=== PATIENT | female | born 1940 | race Caucasian/White ===

== ENCOUNTER → 2018-05-03 | Outpatient (CLI) | payer MEDICARE ==
[~2018-05-03] MED LIST: ALIGN4 MG PO; BENTYL10 MG PO; CARAFATE1 GM PO; CLORAZEPATE DI7.5 MG PO; GABAPENTIN300 MG PO; LEVSIN0.125 MG PO; LIPITOR80 MG PO; LISINOPRIL10 MG PO; LOVASTATIN40 MG PO; METOCLOPRAMIDE10 MG PO; NEXIUM40 MG PO; PAROXETINE HCL20 MG PO; ROPINIROLE PO; TRAZODONE HCL100 MG PO; ULTRAM 50MG50 MG PO
== END ==
LOC: RAD 13:50
PROVIDERS: ATTEND Family Medicine
DX: R07.9 Chest pain, unspecified (principal); R06.02 Shortness of breath
CPT/HCPCS: 93306

== ENCOUNTER → 2020-04-23 | Outpatient (CLI) | payer MEDICARE ==
--- NOTE | 2020-04-23 11:19 | Diagnostic Imaging Report ---
MRI SPINE LUMBAR WO HISTORY: Low back and bilateral leg pain COMPARISON: Report from MRI of the lumbar spine dated 09/15/2014 TECHNIQUE: Sagittal T1, sagittal T2, sagittal STIR, axial T2, coronal T2, and axial proton density weighted images of the lumbar spine were obtained without contrast. DISCUSSION: Number of non-rib bearing lumbar vertebral bodies: 5. Alignment: Normal lordosis. Subtle thoracolumbar levoscoliosis is present. Vertebrae: No fractures, or neoplasm. Conus medullaris: Normal, ends at T12-L1. Cauda equina: No masses or arachnoiditis. Posterior paraspinal muscles: Overall well preserved. Posterior incision signal changes are noted. Soft tissues: A few small T2 hyperintense lesions in the left kidney are most likely cysts. Mild to moderate multilevel disc degeneration is most prominent at T11-T12 and L5-S1. There are nonspecific mild inflammatory endplate changes on the right at L4-L5. T11-T12: Mild canal stenosis due to disc bulge. No significant foraminal stenosis. T12-L1: Patent canal and foramina. L1-L2: Patent canal and foramina. L2-L3: Patent canal and foramina. L3-L4: Mild canal stenosis due to disc bulge and ligamentum flavum thickening. No significant foraminal stenosis. L4-L5: Left hemilaminectomy changes without significant central canal stenosis. The right lateral recess is slightly effaced by disc bulge and ligamentum flavum thickening. Mild to moderate right and mild left foraminal stenoses due to disc bulge and facet arthrosis. L5-S1: Mild to moderate right and moderate left foraminal stenoses due to disc bulge and facet arthrosis. No significant canal stenosis. IMPRESSION: 1. 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 Nonspecific mild inflammatory endplate changes on the right at L4-L5. 2. Left hemilaminectomy changes at L4-L5. 3. Degenerative foraminal stenoses - mild to moderate right and mild left at L4-L5; mild to moderate right and moderate left at L5-S1. 4. Mild degenerative canal stenoses at T11-T12 and L3-L4. Signed by: Dr. Rafat Carrasquillo M.D. on 04/23/2020 11:16 AM
== END ==
LOC: MRI 09:36
PROVIDERS: ATTEND Family Medicine
DX: M54.5 Low back pain (principal)
CPT/HCPCS: 72148

== ENCOUNTER → 2020-12-03 | Outpatient (CLI) | payer MEDICARE ==
[~2020-12-03] MED LIST changes: +IOPAMIDOL 370 MG/ML 200 ML INFUS..BTL INJ ONE; +SODIUM CHLORIDE 0.9% 100 ML ONE
[2020-12-03 12:02] LABS: BLOOD UREA NITROGEN 9 mg/dL (7-26); BUN/CREATININE RATIO 11 (6-25); CREATININE, SERUM 0.83 mg/dL (0.57-1.11); EST GLOMERULAR FILTRATION RATE > 60 ML/MIN (60-)
== END ==
LOC: CT 11:01
PROVIDERS: ATTEND Family Medicine
DX: I73.9 Peripheral vascular disease, unspecified (principal)
CPT/HCPCS: 36415; 75635; 82565; 84520; J7050; Q9967

== ENCOUNTER → 2021-02-28 | Day surgery (SDC) | payer MEDICARE ==
[2021-02-24 10:29] LABS: BASOPHILS # (AUTO) 0.1 (0.0-0.1); BASOPHILS % 0.6 % (0.0-1.0); EOSINOPHILS # (AUTO) 0.3 (0.0-0.4); EOSINOPHILS % 3.4 % (0.0-6.0); LYMPHOCYTES # (AUTO) 1.4 (1.0-3.2); LYMPHOCYTES % 15.8 % (18.0-39.1); MEAN CORPUSCULAR HEMOGLOBIN 30.2 pg (28-32); MEAN CORPUSCULAR HGB CONC 33.3 g/dL (31-35); MEAN CORPUSCULAR VOLUME 90.5 fL (81-99); MONOCYTES # (AUTO) 0.9 (0.2-0.8); MONOCYTES % 10.5 % (4.4-11.3); NEUTROPHILS # (AUTO) 5.9 (2.1-6.9); NEUTROPHILS % 69.3 % (38.7-80.0); PLATELET COUNT 277 x10e3/uL (140-360); RED BLOOD COUNT 4.64 x10e6/uL (3.6-5.1); RED CELL DISTRIBUTION WIDTH 12.9 % (11.7-14.4)
[~2021-02-28] MED LIST changes: +ARMOUR THYROID15 MG PO; +BUSPIRONE HCL15 MG PO; +CLOPIDOGREL75 MG PO; +FENTANYL CITRATE/PF 100MCG/2 ML INJ ONE; +GLUCAGON FOR INJ 1 MG VIAL ONE; +HYOSCYAMINE SULFATE 0.5 MG/ML INJ ONE; +INDERAL20 MG PO; -IOPAMIDOL 370 MG/ML 200 ML INFUS..BTL INJ ONE; +LIDOCAINE HCL 2% LOCAL INJ 5 ML SDV VIAL INJ ONE; +PROPOFOL IV EMULSION 10 MG/ML 20 ML VIAL ONE; +QUETIAPINE FUMA25 MG PO; -SODIUM CHLORIDE 0.9% 100 ML ONE; +SPIRIVA18 MCG INH
[2021-02-28 13:40] VITALS: BP 135/95
== END | disposition home or self-care (01) ==
LOC: OR 11:01
PROVIDERS: ATTEND Internal Medicine Gastroenterology
DX: K29.70 Gastritis, unspecified, without bleeding (principal); D12.2 Benign neoplasm of ascending colon; D12.3 Benign neoplasm of transverse colon; D12.5 Benign neoplasm of sigmoid colon; K31.7 Polyp of stomach and duodenum; K22.70 Barrett's esophagus without dysplasia; K20.90 Esophagitis, unspecified without bleeding; K21.9 Gastro-esophageal reflux disease without esophagitis; K44.9 Diaphragmatic hernia without obstruction or gangrene; R19.5 Other fecal abnormalities; K57.30 Diverticulosis of large intestine without perforation or abscess without bleeding; K64.8 Other hemorrhoids; I25.10 Atherosclerotic heart disease of native coronary artery without angina pectoris; E78.5 Hyperlipidemia, unspecified; I10 Essential (primary) hypertension; I73.00 Raynaud's syndrome without gangrene; M19.90 Unspecified osteoarthritis, unspecified site; J43.9 Emphysema, unspecified; E03.9 Hypothyroidism, unspecified; F41.9 Anxiety disorder, unspecified; Z88.1 Allergy status to other antibiotic agents; Z88.8 Allergy status to other drugs, medicaments and biological substances; Z01.812 Encounter for preprocedural laboratory examination; Z20.822 Contact with and (suspected) exposure to COVID-19; Z79.02 Long term (current) use of antithrombotics/antiplatelets; Z87.19 Personal history of other diseases of the digestive system; Z80.0 Family history of malignant neoplasm of digestive organs
CPT/HCPCS: 36415; 43239; 45380; 45385; 85025; 88305; 88312; J1610; J1980; J2001; J2704; J3010; U0002; 45378

== ENCOUNTER → 2021-04-08 | Outpatient (CLI) | payer MEDICARE ==
[~2021-04-08] MED LIST changes: -FENTANYL CITRATE/PF 100MCG/2 ML INJ ONE; -GLUCAGON FOR INJ 1 MG VIAL ONE; -HYOSCYAMINE SULFATE 0.5 MG/ML INJ ONE; -LIDOCAINE HCL 2% LOCAL INJ 5 ML SDV VIAL INJ ONE; -PROPOFOL IV EMULSION 10 MG/ML 20 ML VIAL ONE
== END ==
LOC: CT 15:33
PROVIDERS: ATTEND Family Medicine
DX: J44.1 Chronic obstructive pulmonary disease with (acute) exacerbation (principal)
CPT/HCPCS: 71250

== ENCOUNTER 2021-11-22 17:28 | Emergency (ER) | payer MEDICARE ==
[~2021-11-22] VITALS: Ht 157.5 cm; Wt 63.5 kg
[2021-11-22] MEDS ORDERED: DICYCLOMINE HCL10 MG PO (19:40)
[2021-11-22] MEDS ORDERED: CIPRO500 MG PO (19:40)
[2021-11-22 19:55] VITALS: BP 139/89
== END 2021-11-22 19:55 | disposition home or self-care (01) ==
LOC: FSED 17:42
DX: R10.30 Lower abdominal pain, unspecified (principal); R19.7 Diarrhea, unspecified; I10 Essential (primary) hypertension; J44.9 Chronic obstructive pulmonary disease, unspecified; E03.9 Hypothyroidism, unspecified; Z20.822 Contact with and (suspected) exposure to COVID-19
CPT/HCPCS: 71045; 74176; 87400; 99284; U0002

== ENCOUNTER 2022-12-18 10:07 | Emergency (ER) | payer MEDICARE ==
[~2022-12-18] VITALS: Ht 157.5 cm; Wt 61.2 kg
[~2022-12-18 10:07] MED LIST changes: +ANTIVERT25 M1 PO; +CIPRO500 MG PO; +DICYCLOMINE HCL10 MG PO; +ONDANSETRON ODT4 MG PO
[2022-12-18] MEDS ORDERED: SODIUM CHLORIDE 0.9% 1000ML 1,000 ML IV STA (11:06)
[2022-12-18 11:21] LABS: BASOPHILS # (AUTO) 0.1 (0.0-0.1); BASOPHILS % 0.5 % (0.0-1.0); EOSINOPHILS % 0.3 % (0.0-6.0); HEMATOCRIT 41.4 % (34.2-44.1); HEMOGLOBIN 14.4 g/dL (12.0-16.0); LYMPHOCYTES # (AUTO) 1.6 (1.0-3.2); LYMPHOCYTES % 15.3 % (18.0-39.1); MEAN CORPUSCULAR HGB CONC 34.8 g/dL (31-35); MEAN CORPUSCULAR VOLUME 83.5 fL (81-99); MONOCYTES # (AUTO) 0.8 (0.2-0.8); MONOCYTES % 7.2 % (4.4-11.3); NEUTROPHILS % 76.4 % (38.7-80.0); PLATELET COUNT 305 x10e3/uL (140-360); RED BLOOD COUNT 4.96 x10e6/uL (3.6-5.1); RED CELL DISTRIBUTION WIDTH 12.6 % (11.7-14.4)
[2022-12-18 11:27] LABS: INR 1.06; PARTIAL THROMBOPLASTIN TIME 27.1 seconds (23.8-35.5); PROTHROMBIN TIME 14.3 seconds (11.9-14.5)
[2022-12-18 11:33] LABS: ALBUMIN/GLOBULIN RATIO 1.1 (0.8-2.0); ANION GAP 18.3 mmol/L (8-16); CREATININE, SERUM 0.82 mg/dL (0.57-1.11); MAGNESIUM 1.8 MG/DL (1.3-2.1); POTASSIUM 3.3 mmol/L (3.5-5.1)
[2022-12-18 11:52] LABS: CREATINE KINASE MB 3.3 ng/mL (0-5.0); THYROID STIMULATING HORMONE 2.58 uIU/mL (0.350-4.940)
[2022-12-18 13:36] LABS: CLARITY,URINE CLEAR (CLEAR); COLOR,URINE YELLOW (YELLOW); KETONES,URINE 2+ (NEGATIVE); LEUKOCYTE ESTERASE ,URINE TRACE (NEGATIVE); NITRITE,URINE NEGATIVE (NEGATIVE); PROTEIN,URINE DIPSTICK NEGATIVE (NEGATIVE); URINE UROBILINOGEN 0.2 mg/dL (0.2 - 1)
[2022-12-18 13:52] LABS: BACTERIA,URINE RARE /HPF; EPITHELIAL CELLS,URINE FEW /LPF; RBC,URINE 0-5 /HPF (0-5)
[2022-12-18] MEDS ORDERED: AMOX TR-K CLV1 EAC2 PO (15:10)
== END 2022-12-18 16:15 | disposition home or self-care (01) ==
LOC: ER 10:22
DX: N39.0 Urinary tract infection, site not specified (principal); R42 Dizziness and giddiness; I10 Essential (primary) hypertension; J44.9 Chronic obstructive pulmonary disease, unspecified
CPT/HCPCS: 0223U; 36415; 70450; 71045; 80053; 81001; 82550; 82553; 83735; 83880; 84443; 84484; 85025; 85610; 85730; 87086; 93005; 99284; J0696; J7030

== ENCOUNTER 2023-01-31 13:54 | Inpatient (IN) | payer MEDICARE ==
[~2023-01-31] VITALS: Ht 157.5 cm; Wt 61.2 kg
[~2023-01-31 13:54] MED LIST changes: +AMOX TR-K CLV1 EAC2 PO
[2023-01-31] MEDS ORDERED: DIPHENHYDRAMINE HCL INJ 50 MG/ML VIAL IV ONE (14:45)
[2023-01-31] MEDS ORDERED: SODIUM CHLORIDE 0.9% 1000ML 1,000 ML IV ONE (14:45)
[2023-01-31 15:01] LABS: BASOPHILS # (AUTO) 0.1 (0.0-0.1); BASOPHILS % 0.4 % (0.0-1.0); EOSINOPHILS # (AUTO) 0.1 (0.0-0.4); EOSINOPHILS % 0.5 % (0.0-6.0); HEMATOCRIT 40.3 % (34.2-44.1); HEMOGLOBIN 13.6 g/dL (12.0-16.0); LYMPHOCYTES # (AUTO) 1.9 (1.0-3.2); LYMPHOCYTES % 14.3 % (18.0-39.1); MEAN CORPUSCULAR HEMOGLOBIN 28.3 pg (28-32); MEAN CORPUSCULAR HGB CONC 33.7 g/dL (31-35); MONOCYTES # (AUTO) 1.2 (0.2-0.8); MONOCYTES % 9.2 % (4.4-11.3); NEUTROPHILS # (AUTO) 9.8 (2.1-6.9); NEUTROPHILS % 75.3 % (38.7-80.0); PLATELET COUNT 386 x10e3/uL (140-360); RED CELL DISTRIBUTION WIDTH 12.7 % (11.7-14.4)
[2023-01-31 15:14] LABS: ALBUMIN 3.6 g/dL (3.5-5.0); ALBUMIN/GLOBULIN RATIO 0.9 (0.8-2.0); ANION GAP 20.7 mmol/L (8-16); CALCIUM 9.9 mg/dL (8.4-10.2); CREATININE, SERUM 0.91 mg/dL (0.57-1.11); POTASSIUM 3.7 mmol/L (3.5-5.1)
[2023-01-31 15:17] LABS: CLARITY,URINE CLEAR (CLEAR); COLOR,URINE YELLOW (YELLOW); KETONES,URINE 1+ (NEGATIVE); LEUKOCYTE ESTERASE ,URINE NEGATIVE (NEGATIVE); NITRITE,URINE NEGATIVE (NEGATIVE); PROTEIN,URINE DIPSTICK NEGATIVE (NEGATIVE); URINE UROBILINOGEN 0.2 mg/dL (0.2 - 1)
[2023-01-31 15:19] LABS: RBC,URINE 0-5 /HPF (0-5); WBC,URINE (MAN) 0-5 /HPF (0-5)
[2023-01-31] MEDS ORDERED: IOPAMIDOL 370 MG/ML 100 ML INFUS..BTL INJ ONE (15:23)
[2023-01-31] MEDS: Morphine 4mg INJECTION 4 MG/ML INJ IV PRN (16:24)
[2023-01-31] MEDS: DEXTROSE 5%/0.9% SOD CHL 1,000 ML IV SCH (17:55)
[2023-01-31 23:20] VITALS: BP 122/78
[2023-02-01] VITALS (7 sets, daily range): BP systolic 103–119; BP diastolic 63–75
[2023-02-01] MEDS: ONDANSETRON HCL INJ 2MG/ML 2ML 2 MG/ML VIAL IV PRN ×4 (00:03→20:04)
[2023-02-01] MEDS: Morphine 4mg INJECTION 4 MG/ML INJ IV PRN ×2 (00:03→07:57)
[2023-02-01] MEDS: DEXTROSE 5%/0.9% SOD CHL 1,000 ML IV SCH ×2 (05:18→20:04)
[2023-02-01 05:20] LABS: BASOPHILS # (AUTO) 0.1 (0.0-0.1); BASOPHILS % 0.6 % (0.0-1.0); EOSINOPHILS # (AUTO) 0.1 (0.0-0.4); EOSINOPHILS % 1.6 % (0.0-6.0); HEMATOCRIT 35.1 % (34.2-44.1); HEMOGLOBIN 11.7 g/dL (12.0-16.0); LYMPHOCYTES # (AUTO) 1.5 (1.0-3.2); LYMPHOCYTES % 16.1 % (18.0-39.1); MEAN CORPUSCULAR HEMOGLOBIN 28.5 pg (28-32); MEAN CORPUSCULAR HGB CONC 33.3 g/dL (31-35); MEAN CORPUSCULAR VOLUME 85.4 fL (81-99); MONOCYTES % 10.6 % (4.4-11.3); NEUTROPHILS # (AUTO) 6.4 (2.1-6.9); PLATELET COUNT 275 x10e3/uL (140-360); RED BLOOD COUNT 4.11 x10e6/uL (3.6-5.1); RED CELL DISTRIBUTION WIDTH 12.9 % (11.7-14.4)
[2023-02-01 05:47] LABS: ANION GAP 14.2 mmol/L (8-16); CALCIUM 8.5 mg/dL (8.4-10.2); CREATININE, SERUM 0.77 mg/dL (0.57-1.11); POTASSIUM 3.2 mmol/L (3.5-5.1)
[2023-02-01 06:02] LABS: MAGNESIUM 1.9 MG/DL (1.3-2.1); PHOSPHORUS 4.4 MG/DL (2.3-4.7)
[2023-02-01] MEDS ORDERED: POTASSIUM CHLORIDE 10MEQ/100ML 100 ML INJ ONE (09:30)
[2023-02-01] MEDS: HYDROMORPHONE 1MG/1ML INJ IV PRN ×3 (11:00→20:04)
[2023-02-01] MEDS ORDERED: PIPERACILLIN/TAZOBACTAM 3.375 GM VIAL ONE (19:55)
[2023-02-02] VITALS (9 sets, daily range): BP systolic 112–153; BP diastolic 66–94
[2023-02-02] MEDS: HYDROMORPHONE 1MG/1ML INJ IV PRN ×5 (05:02→21:55)
[2023-02-02] MEDS: ONDANSETRON HCL INJ 2MG/ML 2ML 2 MG/ML VIAL IV PRN ×5 (05:02→21:54)
[2023-02-02] MEDS: DEXTROSE 5%/0.9% SOD CHL 1,000 ML IV SCH ×2 (08:47→20:41)
[2023-02-02 09:34] LABS: MAGNESIUM 1.7 MG/DL (1.3-2.1); PHOSPHORUS 2.5 MG/DL (2.3-4.7)
[2023-02-02] MEDS: DIPHENHYDRAMINE HCL 25 MG CAP PO PRN (13:26)
[2023-02-03] VITALS (9 sets, daily range): BP systolic 120–134; BP diastolic 58–83
[2023-02-03] MEDS: HYDROMORPHONE 1MG/1ML INJ IV PRN ×5 (05:40→23:31)
[2023-02-03] MEDS: ONDANSETRON HCL INJ 2MG/ML 2ML 2 MG/ML VIAL IV PRN ×5 (05:40→23:31)
[2023-02-03 07:17] LABS: ANION GAP 13.4 mmol/L (8-16); BLOOD UREA NITROGEN < 5 mg/dL (7-26); CALCIUM 8.4 mg/dL (8.4-10.2); CARBON DIOXIDE 20 mmol/L (22-29); CHLORIDE 108 mmol/L (98-107); CREATININE, SERUM 0.76 mg/dL (0.57-1.11); GLUCOSE 136 mg/dL (74-118); MAGNESIUM 1.7 MG/DL (1.3-2.1); PHOSPHORUS 3.8 MG/DL (2.3-4.7); POTASSIUM 3.4 mmol/L (3.5-5.1); SODIUM 138 mmol/L (136-145)
[2023-02-03 07:24] LABS: BUN/CREATININE RATIO 7 (6-25)
[2023-02-03] MEDS ORDERED: POTASSIUM CHLORIDE 20 MEQ TAB CR PO STA (09:14)
[2023-02-03] MEDS: DEXTROSE 5%/0.9% SOD CHL 1,000 ML IV SCH (11:22)
[2023-02-03] MEDS: DIPHENHYDRAMINE HCL 25 MG CAP PO PRN (14:07)
[2023-02-04] VITALS (8 sets, daily range): BP systolic 135–151; BP diastolic 80–88
[2023-02-04] MEDS: DEXTROSE 5%/0.9% SOD CHL 1,000 ML IV SCH ×2 (01:22→14:20)
[2023-02-04 05:45] LABS: ANION GAP 10.7 mmol/L (8-16); BLOOD UREA NITROGEN < 5 mg/dL (7-26); CALCIUM 8.5 mg/dL (8.4-10.2); CARBON DIOXIDE 21 mmol/L (22-29); CHLORIDE 110 mmol/L (98-107); CREATININE, SERUM 0.79 mg/dL (0.57-1.11); GLUCOSE 110 mg/dL (74-118); MAGNESIUM 1.8 MG/DL (1.3-2.1); POTASSIUM 3.7 mmol/L (3.5-5.1); SODIUM 138 mmol/L (136-145)
[2023-02-04 05:48] LABS: BUN/CREATININE RATIO 6 (6-25)
[2023-02-04 06:01] LABS: PHOSPHORUS 3.7 MG/DL (2.3-4.7)
[2023-02-04] MEDS: HYDROMORPHONE 1MG/1ML INJ IV PRN ×3 (09:32→20:29)
[2023-02-04] MEDS: ONDANSETRON HCL INJ 2MG/ML 2ML 2 MG/ML VIAL IV PRN ×3 (09:32→20:28)
[2023-02-05] VITALS: BP 142/83
[2023-02-05] MEDS: METOCLOPRAMIDE HCL 10 MG/2ML VIAL IV SCH ×3 (00:45→12:00)
[2023-02-05] MEDS: ONDANSETRON HCL INJ 2MG/ML 2ML 2 MG/ML VIAL IV PRN (03:10)
[2023-02-05] MEDS: HYDROMORPHONE 1MG/1ML INJ IV PRN ×2 (03:11→08:10)
[2023-02-05 04:00] VITALS: BP 147/76
[2023-02-05] MEDS: DEXTROSE 5%/0.9% SOD CHL 1,000 ML IV SCH (04:34)
[2023-02-05 08:19] VITALS: BP 144/85
[2023-02-05 08:45] VITALS: BP 144/85
[2023-02-05] MEDS ORDERED: ULTRAM 50MG50 MG PO (10:33)
[2023-02-05] MEDS ORDERED: CEPHALEXIN500 MG PO (10:33)
[2023-02-05] MEDS ORDERED: ONDANSETRON ODT4 MG PO (10:33)
[2023-02-05] MEDS ORDERED: PANTOPRAZOLE SO40 MG PO (10:33)
[2023-02-05] MEDS ORDERED: TRAMADOL HCL 50 MG TAB PO PRN (10:45)
[2023-02-05 12:05] VITALS: BP 155/83
== END 2023-02-05 13:28 | disposition home or self-care (01) | DRG 872 ==
LOC: ER 14:10 → ERHOLD 16:52 → MED/SURG2 23:18
PROVIDERS: ADMIT Internal Medicine; ATTEND Internal Medicine
DX: A41.9 Sepsis, unspecified organism (principal); K57.32 Diverticulitis of large intestine without perforation or abscess without bleeding; E87.1 Hypo-osmolality and hyponatremia; R65.20 Severe sepsis without septic shock; K62.89 Other specified diseases of anus and rectum; K76.0 Fatty (change of) liver, not elsewhere classified; E87.6 Hypokalemia; F31.9 Bipolar disorder, unspecified; I10 Essential (primary) hypertension; J44.9 Chronic obstructive pulmonary disease, unspecified; E03.9 Hypothyroidism, unspecified; F41.9 Anxiety disorder, unspecified; E78.5 Hyperlipidemia, unspecified; M54.9 Dorsalgia, unspecified; G89.29 Other chronic pain; M19.90 Unspecified osteoarthritis, unspecified site; R00.0 Tachycardia, unspecified; K76.89 Other specified diseases of liver; G47.00 Insomnia, unspecified; Z20.822 Contact with and (suspected) exposure to COVID-19
CPT/HCPCS: 36415; 51700; 74177; 80048; 80053; 81001; 83605; 83630; 83690; 83735; 84100; 84484; 85025; 87040; 87045; 87177; 87324; 87328; 87449; 93005; 96361; 99284; J1170; J1200; J2270; J2405; J2543; J2765; J3480; J7030; J7042; Q9967